=== PATIENT | female | born 1960 | race Caucasian/White ===

== ENCOUNTER 2017-03-06 11:46 | Emergency (ER) | payer OTHER ==
[2017-03-06 11:58] VITALS: O2SAT 100
--- NOTE | 2017-03-06 13:37 | C.PDOC ---
History Of Present Illness 56 y/o female hx of diabetes and HTN, c/o reproducible chest pain that began an hour [employer]. Pain is 6/10. Patient notes chest pain usually occurs for 30 min once a week. Patient also reports of dizziness, SOB, fatigue, nausea, and sweating for 2 week. Patient notes these symptoms comes and goes. Denies fever, chills, or abdominal pain. No palpitations, lower leg swelling, or light headedness. No rash. 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, ), Days (2 weeks) Current Symptoms Are (Timing): Still Present Severity: Mild Pain Scale Rating Of: 6 Quality: "Pain" Recent travel outside of the [place]: No Additional History Per: Patient Past Medical History Reviewed: Historical Data, Nursing Documentation, Vital Signs Vital Signs: Last Vital Signs Temp 99 F 03/06/17 16:19 Pulse 86 03/06/17 16:19 Resp 20 03/06/17 16:19 BP 121/80 03/06/17 16:19 Pulse Ox 100 03/06/17 16:19 - Medical History PMH: HTN Surgical History: Family History: States: [place], Hypertension - Social History Hx Alcohol Use: No Hx Substance Use: No Review Of Systems Except As Marked, All Systems Reviewed And Found Negative. Constitutional: Positive for: Sweats, Other (Fatigue). Negative for: Fever, Chills Cardiovascular: Positive for: Chest Pain. Negative for: Palpitations, Light Headedness Respiratory: Positive for: Shortness of Breath Gastrointestinal: Positive for: Nausea. Negative for: Abdominal Pain Musculoskeletal: Negative for: Leg Pain (leg swelling) Neurological: Positive for: Dizziness Physical Exam - Physical Exam Appears: Non-toxic, No Acute Distress Skin: Warm, Dry, No Rash Head: Atraumatic, Normacephalic Chest: Symmetrical, Tenderness (Reproducible chest tenderness with palpation of chest) Cardiovascular: Rhythm Regular, No Murmur Respiratory: Normal Breath Sounds, No Rales, No Rhonchi, No Wheezing Gastrointestinal/Abdominal: Soft, No Tenderness, No Distention, No Guarding, No Rebound Back: Normal Inspection, No CVA Tenderness Extremity: Normal ROM (x4. ), Capillary Refill (<2secs) Neurological/Psych: Oriented x3 ED Course And Treatment - Laboratory Results Result Diagrams: 03/06/17 13:37 03/06/17 13:37 ECG: Interpreted By Me ECG Rhythm: Sinus Rhythm ECG Interpretation: Normal, No Acute Changes Interpretation Of ECG: Intervals w/in normal limits. Mild left axis deviation. No acute STT wave changes. No ectopy. No old EKG for comparison. Rate From EC O2 Sat by Pulse Oximetry: 100 Pulse Ox Interpretation: Normal Medical Decision Making Medical Decision Making: Plan: * Blood labs * Novolin * CXR * EKG * UA Disposition - Disposition Referrals: [facility] [Outside] Disposition: HOME/ ROUTINE Disposition Time: 15:51 Condition: GOOD Additional Instructions: call clinic for appt to adjust diabetes regimen Forms: [facility] (Spanish), Gen Discharge Inst Finnish - Clinical Impression Clinical Impression: Hyperglycemia, Chest wall pain - Scribe Statement The provider has reviewed the documentation as recorded by the Scribe Sunita ellison All medical record entries made by the Scribe were at my direction and personally dictated by me. I have reviewed the chart and agree that the record accurately reflects my personal performance of the history, physical exam, medical decision making, and the department course for this patient. I have also personally directed, reviewed, and agree with the discharge instructions and disposition.
[2017-03-06 13:43] LABS: BASO # 0.1 K/uL (0.0-0.2); EOS # 0.1 K/uL (0.0-0.7); EOS % 0.5 % (0.0-4.0); HEMATOCRIT 45.4 % (34.0-47.0); LYMPH # 1.8 K/uL (1.0-4.3); LYMPH % 16.4 % (20.0-40.0); MEAN CELL VOLUME 85.4 fL (81.0-99.0); MEAN CORPUSCULAR HEMOGLOBIN 29.1 pg (27.0-31.0); MEAN CORPUSCULAR HGB CONC 34.1 g/dL (33.0-37.0); MEAN PLATELET VOLUME 10.7 fL (7.2-11.7); MONO # 0.7 K/uL (0.0-0.8); MONO % 6.4 % (0.0-10.0); NRBC % 0.1 % (0.0-2.0); RED CELL DISTRIBUTION WIDTH 12.9 % (11.5-14.5); WHITE BLOOD COUNT 10.7 K/uL (4.8-10.8)
[2017-03-06 14:00] LABS: CHLORIDE 93 mmol/L (98-107)
[2017-03-06 14:01] LABS: POTASSIUM 4.5 mmol/L (3.6-5.2); SODIUM 130 mmol/L (132-148)
[2017-03-06 14:03] LABS: ALB/GLOB RATIO 0.9 (1.0-2.1); ALKALINE PHOSPHATASE 134 U/L (38-126); ALT/SGPT 27 U/L (9-52); AST/SGOT 25 U/L (14-36); BILIRUBIN,TOTAL 1.3 mg/dL (0.2-1.3); BLOOD UREA NITROGEN 23 mg/dL (7-17); CARBON DIOXIDE 23 mmol/L (22-30); GFR AFRICAN-AMERICAN > 60; TOTAL PROTEIN 8.9 g/dL (6.3-8.3)
[2017-03-06 14:04] LABS: CALCIUM 10.1 mg/dl (8.6-10.4)
[2017-03-06 14:18] LABS: GLUCOSE,RANDOM 437 mg/dL (65-105)
[2017-03-06] MEDS ORDERED: (Novolin R) Insulin Human Regular 100 units/ml vial IV STA (14:26)
[2017-03-06] MEDS ORDERED: (Novolin R) Insulin Human Regular 100 units/ml vial ONE (14:41)
[2017-03-06 15:02] LABS: RBC URINE 1 /hpf (0-3); URINE BACTERIA MANY (<OCC); URINE BILIRUBIN NEGATIVE (NEGATIVE); URINE BLOOD NEGATIVE (NEGATIVE); URINE COLOR Yellow (YELLOW); URINE GLUCOSE (UA) 3+ mg/dL (Normal); URINE HYALINE CAST 0-2 /lpf (0-2); URINE KETONE 1+ mg/dL (NEGATIVE); URINE LEUKOCYTE ESTERASE NEG Leu/uL (Negative); URINE PROTEIN NEGATIVE (NEGATIVE); URINE UROBILINOGEN NORMAL mg/dL (0.2-1.0); WBC URINE 16 /hpf (0-5)
--- NOTE | 2017-03-06 15:49 | RAD ---
HISTORY: CHEST PAIN COMPARISON: No prior. TECHNIQUE: Chest PA and lateral FINDINGS: LUNGS: No active pulmonary disease. PLEURA: No significant pleural effusion identified. No pneumothorax apparent. CARDIOVASCULAR: Normal. OSSEOUS STRUCTURES: No significant abnormalities. VISUALIZED UPPER ABDOMEN: Normal. OTHER FINDINGS: None. IMPRESSION: No active disease.
[2017-03-06 16:21] VITALS: BP 121/80; PULSE 86; RESP 20; TEMP 99
== END 2017-03-06 16:27 | disposition home or self-care (01) ==
LOC: C.ER 11:46
DX: E11.65 Type 2 diabetes mellitus with hyperglycemia (principal); R07.89 Other chest pain; I10 Essential (primary) hypertension